=== PATIENT | female | born 1935 ===

== ENCOUNTER 2018-01-05 19:38 | Emergency (ER) | payer MEDICARE ==
[2018-01-05 19:53] VITALS: TEMP 98.4; O2SAT 100
--- NOTE | 2018-01-05 20:12 | C.PDOC ---
History Of Present Illness 82 year old female with PMHx HTN presents to the ED for evaluation. Patient reports while at home she checked her BP and noticed it was high. Patient felt like she was having some palpitations. 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 Patient denies headache, dizziness, blurry vision, SOB, nausea, vomit. Time Seen by Provider: 01/05/18 19:56 Chief Complaint (Nursing): Palpitations History Per: Patient History/Exam Limitations: no limitations Onset/Duration Of Symptoms: Hrs Current Symptoms Are (Timing): Still Present Quality: "Pain" Associated Symptoms: denies: Nausea, Dyspnea, Diaphoresis Modifying Factors: None Exacerbating Factors: None Recent travel outside of the [place]: No Additional History Per: Patient Past Medical History Reviewed: Historical Data, Nursing Documentation, Vital Signs Vital Signs: Last Vital Signs Temp 98.4 F 01/05/18 19:49 Pulse 68 01/05/18 21:13 Resp 19 01/05/18 21:13 BP 166/59 H 01/05/18 21:13 Pulse Ox 100 01/05/18 21:14 - Medical History PMH: HTN, Hypercholesterolemia Surgical History: No Surg Hx Family History: States: Unknown Family Hx - Social History Hx Alcohol Use: No Hx Substance Use: No Review Of Systems Constitutional: Negative for: Fever, Chills Eyes: Negative for: Vision Change Cardiovascular: Positive for: Chest Pain, Palpitations Respiratory: Negative for: Cough, Shortness of Breath Gastrointestinal: Negative for: Nausea, Vomiting Skin: Negative for: Rash Neurological: Negative for: Weakness, Numbness, Headache Physical Exam - Physical Exam Appears: Non-toxic, No Acute Distress, Other (elderly, anxious) Skin: Normal Color, Warm, Dry Head: Atraumatic, Normacephalic Eye(s): bilateral: Normal Inspection Oral Mucosa: Moist Neck: Normal ROM, Supple Chest: Symmetrical Cardiovascular: Rhythm Regular Respiratory: Normal Breath Sounds, No Rales, No Rhonchi, No Wheezing Gastrointestinal/Abdominal: Soft, No Tenderness, No Guarding, No Rebound Extremity: Normal ROM, No Tenderness, No Swelling Neurological/Psych: Oriented x3, Normal Speech Gait: Steady ED Course And Treatment - Laboratory Results Result Diagrams: 01/05/18 20:26 01/05/18 20:26 ECG: Interpreted By Me, Viewed By Me ECG Rhythm: Sinus Rhythm ECG Interpretation: Normal Rate From EC (BPM) O2 Sat by Pulse Oximetry: 100 (ON RA) Pulse Ox Interpretation: Normal Medical Decision Making Medical Decision Making: Impression: anxious, elevated BP at home Plan: * EKG * CXR * Labs * Vasotec 20 mg PO * UA Disposition Doctor Will See Patient In The: Office Counseled Patient/Family Regarding: Studies Performed, Diagnosis - Disposition Referrals: Shukri Holt MD [Staff Provider] - Disposition: HOME/ ROUTINE Disposition Time: 21:00 Condition: GOOD Additional Instructions: continue your normal hypertension regimen Check your BP ONLY ONCE PER DAY, SAME TIME AND PLACE. do not drink excess water this can cause electrolyte disturbances. Drink HALF the excess water you are now drinking daily. Instructions: High Blood Pressure (DC), Anxiety, Adult (DC) Forms: [facility] (Luxembourger) - Clinical Impression Clinical Impression: Anxiety about health, Primary polydipsia - Scribe Statement The provider has reviewed the documentation as recorded by the Scribe Fred Bledsoe All medical record entries made by the Scribe were at my direction and personally dictated by me. I have reviewed the chart and agree that the record accurately reflects my personal performance of the history, physical exam, medical decision making, and the department course for this patient. I have also personally directed, reviewed, and agree with the discharge instructions and disposition.
[2018-01-05 20:30] LABS: BASO % 0.4 % (0.0-2.0); EOS # 0.1 K/uL (0.0-0.7); HEMOGLOBIN 13.6 g/dL (11.0-16.0); LYMPH # 3.1 K/uL (1.0-4.3); LYMPH % 35.5 % (20.0-40.0); MEAN CELL VOLUME 93.2 fL (81.0-99.0); MEAN CORPUSCULAR HGB CONC 33.2 g/dL (33.0-37.0); MEAN PLATELET VOLUME 8.4 fL (7.2-11.7); MONO # 0.7 K/uL (0.0-0.8); MONO % 7.4 % (0.0-10.0); NEUT # 4.9 K/uL (1.8-7.0); NEUT % 55.7 % (50.0-75.0); NRBC % 0.1 % (0.0-2.0); RBC 4.4 Mil/uL (3.80-5.20); RED CELL DISTRIBUTION WIDTH 13.4 % (11.5-14.5); WHITE BLOOD COUNT 8.8 K/uL (4.8-10.8)
[2018-01-05 20:36] LABS: URINE BILIRUBIN NEGATIVE (NEGATIVE); URINE BLOOD 2+ (NEGATIVE); URINE CLARITY Clear (Clear); URINE COLOR Colorless (YELLOW); URINE GLUCOSE (UA) NORMAL (Normal); URINE LEUKOCYTE ESTERASE NEG Leu/uL (Negative); URINE PROTEIN NEGATIVE (NEGATIVE); URINE UROBILINOGEN NORMAL mg/dL (0.2-1.0)
[2018-01-05 20:41] LABS: ALB/GLOB RATIO 1.4 (1.0-2.1); ALBUMIN 4.7 g/dL (3.5-5.0); ALT/SGPT 31 U/L (9-52); AST/SGOT 28 U/L (14-36); BLOOD UREA NITROGEN 27 mg/dL (7-17); CALCIUM 9.6 mg/dl (8.6-10.4); GFR AFRICAN-AMERICAN 52; GFR NON-AFRICAN AMERICAN 43
[2018-01-05 20:54] LABS: B-TYPE NATRIURETIC PEPTIDE 77.6 pg/mL (0-900)
[2018-01-05 21:14] VITALS: BP 166/59; PULSE 68; RESP 19
--- NOTE | 2018-01-05 21:14 | C.PDOC ---
Time Seen by Provider: 01/05/18 19:56 Chief Complaint (Nursing): Palpitations Past Medical History Vital Signs: Last Vital Signs Temp 98.4 F 01/05/18 19:49 Pulse 77 01/05/18 19:49 Resp 16 01/05/18 19:49 BP 180/73 H 01/05/18 20:29 Pulse Ox 100 01/05/18 20:43 - Medical History PMH: HTN, Hypercholesterolemia Surgical History: No Surg Hx Family History: States: Unknown Family Hx - Social History Hx Alcohol Use: No Hx Substance Use: No ED Course And Treatment - Laboratory Results Result Diagrams: 01/05/18 20:26 01/05/18 20:26 Lab Interpretation: Normal (bnp/trop neg.) ECG: Interpreted By Me ECG Rhythm: Sinus Rhythm ECG Interpretation: Normal Rate From EC O2 Sat by Pulse Oximetry: 100 (ON RA) Pulse Ox Interpretation: Normal - Radiology CXR: Interpreted by Me CXR Interpretation: Yes: No Acute Disease Progress Note: vasotec PO Reevaluation Time: 21:12 Reassessment Condition: Improved Medical Decision Making Medical Decision Making: anxiety about BP given vasotec PO and well controlled instructed to NOT check BP multiple times/day low urine osm pt drinking 8 large glasses of water/day "for health reasons" urine looks like water advised to avoid hyponatremia by drinking only 4 large glasses of water per day. Disposition Doctor Will See Patient In The: Office Counseled Patient/Family Regarding: Studies Performed, Diagnosis - Disposition Disposition: HOME/ ROUTINE Disposition Time: 21:13 Condition: GOOD Forms: [facility] (Albanian) - Clinical Impression Clinical Impression: Anxiety about health, Primary polydipsia
--- NOTE | 2018-01-06 10:08 | RAD ---
PROCEDURE: CHEST RADIOGRAPH, 1 VIEW HISTORY: SOB COMPARISON: None available. FINDINGS: LUNGS: Suspect minor bibasilar atelectasis PLEURA: No pneumothorax or pleural fluid seen. CARDIOVASCULAR: Cardiomegaly. OSSEOUS STRUCTURES: No significant abnormalities. VISUALIZED UPPER ABDOMEN: Normal. OTHER FINDINGS: None. IMPRESSION: Suspect minor bibasilar atelectasis
--- NOTE | 2018-01-07 23:23 | CARD ---
APPROVED REPORT EKG Measurement Heart [id number] <Conclusion> Normal sinus rhythm Nonspecific ST and T wave abnormality Abnormal ECG
== END 2018-01-05 21:39 | disposition home or self-care (01) ==
LOC: C.ER 19:38
DX: F41.9 Anxiety disorder, unspecified (principal); R63.1 Polydipsia; I10 Essential (primary) hypertension; E78.00 Pure hypercholesterolemia, unspecified

== ENCOUNTER 2018-06-02 10:11 | Emergency (ER) | payer MEDICARE ==
[2018-06-02 10:29] VITALS: O2SAT 99
[2018-06-02] MEDS ORDERED: Sodium Chloride 0.9% 500 ML IV ONE ×2 (12:03→12:31)
--- NOTE | 2018-06-02 12:12 | C.PDOC ---
History Of Present Illness 82 year old female with PMHx of HTN presents to the ED complaining of dizziness that started this morning when she was getting up from bed. She describes the dizziness as "room is spinning. " She is currently asymptomatic but notes when she walked to the bathroom she felt it. Reports she was seen in the ED in January for similar presentation which resolved that day with HTN medication. Admits to feeling anxious. Also notes that she increased a dose of her HTN medication 2 weeks ago by orders of Dr Esteban. Denies any syncope, LOC, falls or trauma. Denies any visual changes, headache, fever, chills, chest pain, shortness of breath, abdominal pain, urinary symptoms, or any other complaints. Time Seen by Provider: 06/02/18 11:33 Chief Complaint (Nursing): Dizziness/Lightheaded History Per: Patient, Family (daughter) History/Exam Limitations: no limitations Onset/Duration Of Symptoms: Mins Current Symptoms Are (Timing): Gone Activity At Onset Of Symptoms: Had Just Stood up Associated Symptoms Preceding Syncopal Episode: No Predromal Symptoms (Sudden Onset) Fall Associated With With Symptoms: No Past Medical History Reviewed: Historical Data, Nursing Documentation, Vital Signs Vital Signs: Last Vital Signs Temp 97.9 F 06/02/18 10:26 Pulse 68 06/02/18 10:26 Resp 20 06/02/18 10:26 BP 156/72 H 06/02/18 10:26 Pulse Ox 99 06/02/18 10:26 - Medical History PMH: HTN, Hypercholesterolemia Other Surgeries: Hx of surgeries Family History: States: No Known Family Hx - Social History Hx Alcohol Use: No Hx Substance Use: No Review Of Systems Except As Marked, All Systems Reviewed And Found Negative. Constitutional: Negative for: Fever, Chills Eyes: Negative for: Vision Change Cardiovascular: Negative for: Chest Pain Respiratory: Negative for: Shortness of Breath Gastrointestinal: Negative for: Nausea, Vomiting, Abdominal Pain Genitourinary: Negative for: Dysuria, Hematuria Neurological: Positive for: Dizziness. Negative for: Headache Physical Exam - Physical Exam Appears: Non-toxic, No Acute Distress Skin: Warm, Dry, No Rash Head: Normacephalic Eye(s): bilateral: Normal Inspection, PERRL, EOMI Nose: Normal Oral Mucosa: Moist Neck: Normal ROM, Supple Chest: Symmetrical Cardiovascular: Rhythm Regular Respiratory: Normal Breath Sounds, No Rales, No Rhonchi, No Wheezing Gastrointestinal/Abdominal: Soft, No Tenderness Extremity: Normal ROM Extremity: Bilateral: Atraumatic, Normal Color And Temperature, Normal ROM Neurological/Psych: Oriented x3, Normal Speech, Normal Cognition, Normal Cranial Nerves (2-12 intact; right side of corner of mouth lower than right- daughter notes that it is chronic), Normal Motor, Normal Sensation ED Course And Treatment - Laboratory Results Result Diagrams: 06/02/18 12:22 O2 Sat by Pulse Oximetry: 99 (RA) Pulse Ox Interpretation: Normal Progress Note: Blood and urine collected and sent to the lab for analysis. Patient given IV fluids. Case endorsed to ANJEL Springer pending CT, labs and re- evaluation. Disposition - Disposition Disposition Time: 12:48 Condition: STABLE Forms: [facility] (Northern Irish) - Clinical Impression Clinical Impression: Dizziness - PA / CLINICAL RESOURCE MANAGER / Resident Statement MD/DO has reviewed & agrees with the documentation as recorded. - Scribe Statement The provider has reviewed the documentation as recorded by the Scribe Flory Bah All medical record entries made by the Scribe were at my direction and personally dictated by me. I have reviewed the chart and agree that the record accurately reflects my personal performance of the history, physical exam, medical decision making, and the department course for this patient. I have also personally directed, reviewed, and agree with the discharge instructions and disposition.
[2018-06-02 12:28] LABS: BASO % 0.6 % (0.0-2.0); EOS % 0.2 % (0.0-4.0); HEMOGLOBIN 14.1 g/dL (11.0-16.0); LYMPH # 1.5 K/uL (1.0-4.3); LYMPH % 19.5 % (20.0-40.0); MEAN CELL VOLUME 95.7 fL (81.0-99.0); MEAN CORPUSCULAR HEMOGLOBIN 32.2 pg (27.0-31.0); MEAN CORPUSCULAR HGB CONC 33.7 g/dL (33.0-37.0); MEAN PLATELET VOLUME 8.2 fL (7.2-11.7); MONO # 0.7 K/uL (0.0-0.8); MONO % 8.8 % (0.0-10.0); NEUT # 5.5 K/uL (1.8-7.0); NEUT % 70.9 % (50.0-75.0); RBC 4.37 Mil/uL (3.80-5.20); RED CELL DISTRIBUTION WIDTH 13.1 % (11.5-14.5); WHITE BLOOD COUNT 7.8 K/uL (4.8-10.8)
[2018-06-02 12:35] LABS: PROTHROMBIN TIME 10.4 SECONDS (9.7-12.2)
[2018-06-02 12:46] LABS: ALB/GLOB RATIO 1.4 (1.0-2.1); ALBUMIN 4.8 g/dL (3.5-5.0); ALT/SGPT 27 U/L (9-52); AST/SGOT 33 U/L (14-36); BLOOD UREA NITROGEN 21 mg/dL (7-17); GFR NON-AFRICAN AMERICAN > 60
[2018-06-02 12:47] LABS: URINE BILIRUBIN NEGATIVE (NEGATIVE); URINE BLOOD 1+ (NEGATIVE); URINE CLARITY Clear (Clear); URINE COLOR Colorless (YELLOW); URINE GLUCOSE (UA) NORMAL (Normal); URINE LEUKOCYTE ESTERASE NEG Leu/uL (Negative); URINE PROTEIN NEGATIVE (NEGATIVE); URINE UROBILINOGEN NORMAL mg/dL (0.2-1.0)
[2018-06-02 12:59] LABS: CK-MB 0.86 ng/mL (0.0-3.38)
--- NOTE | 2018-06-02 14:38 | CT ---
Date of service: 06/02/2018 PROCEDURE: CT HEAD WITHOUT CONTRAST. HISTORY: pain COMPARISON: None available. TECHNIQUE: Axial computed tomography images were obtained through the head/brain without intravenous contrast. Radiation dose: Total exam DLP = 1104.0 mGy-cm. This CT exam was performed using one or more of the following dose reduction techniques: Automated exposure control, adjustment of the mA and/or kV according to patient size, and/or use of iterative reconstruction technique. FINDINGS: HEMORRHAGE: No intracranial hemorrhage. BRAIN: No mass effect or edema. Minimal diffuse atrophy. Moderate periventricular and patchy and confluent deep/subcortical white matter lucency consistent with chronic microvascular white matter ischemic change. No evidence of acute infarct. VENTRICLES: Unremarkable. No hydrocephalus. CALVARIUM: Unremarkable. PARANASAL SINUSES: Minimal chronic sphenoid sinusitis. MASTOID AIR CELLS: Unremarkable as visualized. No inflammatory changes. OTHER FINDINGS: None. IMPRESSION: No intracranial mass, hemorrhage or evidence of acute infarct. Moderate chronic microvascular white matter ischemic change. Minimal chronic sphenoid sinusitis.
[2018-06-02 17:17] VITALS: BP 149/68; PULSE 69; RESP 17; TEMP 98
--- NOTE | 2018-06-05 17:57 | CARD ---
APPROVED REPORT Date of service: 06/02/2018 EKG Measurement Heart [id number] TX 152P-1 [id number] <Conclusion> Normal sinus rhythm Junctional ST depression, probably normal Borderline ECG
== END 2018-06-02 17:16 | disposition home or self-care (01) ==
LOC: C.ER 10:11
DX: R42 Dizziness and giddiness (principal); E78.00 Pure hypercholesterolemia, unspecified; I10 Essential (primary) hypertension
CPT/HCPCS: 70450; 80053; 81001; 82550; 82553; 82948; 84484; 85025; 85610; 85730; 87086; 99285; J7040